=== PATIENT | female | born 1985 | race Caucasian/White ===

== ENCOUNTER 2017-08-02 12:48 | Emergency (ER) | payer OTHER ==
[~2017-08-02] VITALS: Ht 162.6 cm; Wt 49.9 kg
[~2017-08-02 12:48] MED LIST: AMOXICILLIN 50500 MG PO; IRON159 MG PO; NOHOMEMEDICATIONS; NORCO 5-325 TA1 EACH PO; PERCOCET PO
[2017-08-02] MEDS ORDERED: BCP (12:54)
[2017-08-02 13:05] LABS: ABSOLUTE BASOPHILS 0.1 thou/uL (0.0-0.2); ABSOLUTE LYMPHOCYTES 2.1 thou/uL (0.8-5.3); ABSOLUTE MONOCYTES 0.4 thou/uL (0.0-1.2); ABSOLUTE NEUTROPHILS 5.2 thou/uL (1.6-8.1); BASOPHILS 1.1 %; EOSINOPHILS 0.2 %; LYMPHOCYTES 26.5 %; MCH 30.2 pg (26.0-34.0); MCHC 34.2 g/dL (28.0-37.0); MCV 88.4 fL (80.0-100.0); MONOCYTES 5.2 %; MPV 9.6 fl. (7.2-11.1); NUCLEATED RBCS 0 /100WBC; PLATELET COUNT* 259 thou/uL (150-400); RBC 4.98 mil/uL (4.20-5.00); RDW-CV 12.8 % (10.5-14.5); WBC 7.8 thou/uL (4.0-11.0)
[2017-08-02 13:13] LABS: ANION GAP 12 mmol/L (7-16); BUN 11 mg/dL (7-18); CALCIUM 9.3 mg/dL (8.5-10.1); CHLORIDE 101 mmol/L (98-107); CO2 25 mmol/L (21-32); CREATININE 0.9 mg/dL (0.6-1.3); GLUCOSE 110 mg/dL (70-99); POTASSIUM 3.2 mmol/L (3.5-5.1); SODIUM 138 mmol/L (136-145)
[2017-08-02 13:17] LABS: APTT 33.1 Seconds (25.0-31.3); INR 1.2; PROTIME 11.4 Seconds (9.20-11.50)
[2017-08-02 13:35] LABS: ALBUMIN 4.1 g/dL (3.4-5.0); ALKALINE PHOSPHATASE 29 U/L (46-116); CK-MB MASS < 0.5 ng/mL (<0.5-3.6); LIPASE 115 U/L (73-393); MAGNESIUM 1.9 mg/dL (1.8-2.4); NT-PRO BRAIN NAT PEPTIDE 67 pg/mL (<300); SGOT 16 U/L (15-37); SGPT 22 U/L (30-65); TOTAL PROTEIN 8.6 g/dL (6.4-8.2); TROPONIN-I LEVEL <0.06 ng/mL (<0.06)
[2017-08-02 13:53] VITALS: BP 126/87
--- NOTE | 2017-08-02 16:04 | EKG ---
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 08/02/17 1604 [id number] Marky Charles MD, [facility] /EPI
== END 2017-08-02 13:53 | disposition home or self-care (01) ==
LOC: M.ERS 12:48
PROVIDERS: Family Medicine
DX: R07.89 Other chest pain (principal); Z88.5 Allergy status to narcotic agent; Z86.2 Personal history of diseases of the blood and blood-forming organs and certain disorders involving the immune mechanism

== ENCOUNTER 2018-04-09 17:12 | Emergency (ER) | payer OTHER ==
[~2018-04-09] VITALS: Ht 165.1 cm; Wt 53.5 kg
[~2018-04-09 17:12] MED LIST changes: +BCP
[2018-04-09 18:48] VITALS: BP 149/86
== END 2018-04-09 18:48 | disposition home or self-care (01) ==
LOC: M.ERS 17:12
DX: S60.311A Abrasion of right thumb, initial encounter (principal); D64.9 Anemia, unspecified; Z88.5 Allergy status to narcotic agent; W00.0XXA Fall on same level due to ice and snow, initial encounter; Y93.89 Activity, other specified; Y92.89 Other specified places as the place of occurrence of the external cause; Y99.8 Other external cause status

== ENCOUNTER 2020-09-28 06:24 | Emergency (ER) | payer OTHER ==
[~2020-09-28] VITALS: Ht 162.6 cm; Wt 53.5 kg
[2020-09-28 06:54] LABS: ABSOLUTE BASOPHILS 0.1 thou/uL (0.0-0.2); ABSOLUTE EOSINOPHILS 0.1 thou/uL (0.0-0.7); ABSOLUTE LYMPHOCYTES 1.3 thou/uL (0.8-5.3); ABSOLUTE MONOCYTES 0.5 thou/uL (0.0-1.2); ABSOLUTE NEUTROPHILS 3.4 thou/uL (1.6-8.1); HEMATOCRIT 40.1 % (37.0-47.0); HEMOGLOBIN 13.7 gm/dL (12.0-15.0); LYMPHOCYTES 24.8 %; MCH 30.3 pg (26.0-34.0); MCHC 34.1 g/dL (28.0-37.0); MCV 88.9 fL (80.0-100.0); MONOCYTES 8.6 %; NUCLEATED RBCS 0 /100WBC; PLATELET COUNT* 227 thou/uL (150-400); POLYS 64.6 %; RBC 4.51 mil/uL (4.20-5.00); RDW-CV 12.9 % (10.5-14.5); WBC 5.3 thou/uL (4.0-11.0)
[2020-09-28 07:11] LABS: CALCIUM 8.8 mg/dL (8.5-10.1); CREATININE 1.1 mg/dL (0.6-1.3); POTASSIUM 3.8 mmol/L (3.5-5.1)
[2020-09-28 07:23] LABS: ALBUMIN 3.8 g/dL (3.4-5.0); MAGNESIUM 2.1 mg/dL (1.8-2.4); TOTAL BILIRUBIN 0.8 mg/dL (<0.1-1.0); TOTAL PROTEIN 7.7 g/dL (6.4-8.2)
[2020-09-28 08:30] LABS: URINE BLOOD NEGATIVE (Negative); URINE CLARITY CLEAR; URINE COLOR YELLOW; URINE GLUCOSE-RANDOM NEGATIVE (Negative); URINE KETONES NEGATIVE (Negative); URINE LEUKOCYTES-REFLEX TRACE (Negative); URINE NITRITE-REFLEX NEGATIVE (Negative); URINE PROTEIN NEGATIVE (Negative); URINE SPECIFIC GRAVITY 1.015 (1.005-1.030); URINE UROBILINOGEN 0.2 E.U./dl (0.2-1.0)
[2020-09-28 08:31] LABS: ICTOTEST (BILI CONFIRMATORY) Negative (Negative); URINE BILIRUBIN 1+ (Negative)
[2020-09-28 09:10] LABS: CASTS None Seen /LPF (None Seen); CRYSTALS None Seen /LPF (None Seen); MUCUS 4-6 Moderate strn/LPF (None Seen); SQUAMOUS 0-3 Few /LPF (0-3); URINE RBC 0-2 Rare /HPF (0-2); URINE WBC-REFLEX 0-5 Rare /HPF (0-5)
[2020-09-28 09:28] VITALS: BP 126/86
--- NOTE | 2020-09-28 14:19 | EKG ---
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 : 1985 Requested By: Freda Crain Order Number: [id number] MD: Corbin Gonzalez Measurements Intervals [place] Rate: 55 P: 20 MS: 151 QRS: 54 QRSD: 83 T: 74 QT: 399 QTc: 382 Interpretive Statements Sinus rhythm Low voltage, precordial leads Baseline wander in lead(s) I,III,aVL,V1 Compared to ECG 08/02/2017 12:54:49 ST (T wave) deviation no longer present Heart rate has decreased Electronically Signed On 09-28-2020 14:19:46 CDT by Corbin Gonzalez [email or web address] <ELECTRONICALLY SIGNED> By: Corbin Gonzalez MD, [facility] 09/28/20 1419 9 9 Corbin Gonzalez MD, [facility] /EPI
== END 2020-09-28 09:29 | disposition home or self-care (01) ==
LOC: M.ERS 06:24
PROVIDERS: Emergency Medicine
DX: R55 Syncope and collapse (principal); Z88.5 Allergy status to narcotic agent; Z86.2 Personal history of diseases of the blood and blood-forming organs and certain disorders involving the immune mechanism